=== PATIENT | male | born 1980 | race Two or more races ===

== ENCOUNTER 2024-06-08 08:03 | Emergency (ER) | payer OTHER, SELFPAY ==
--- NOTE | ~2024-06-08 | XR_ITS ---
EXAMINATION: XR HIP, RIGHT CLINICAL INFORMATION: Right hip pain. [place] a crack chiropractor COMPARISON: None available. TECHNIQUE: AP pelvis, and 2 views of the right hip. FINDINGS: No fracture, dislocation, or suspicious bone lesion. Right hip demonstrates preserved joint space, with mild osteoarthrosis present, and associated mild marginal and subcapital osteophytic spurring. There is mild calcification of the superior labrum. Left hip demonstrates similar findings however are slightly less severe. 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 The sacrum and SI joints appear normal. No soft tissue abnormalities. XR/XR hip RT w PEL1V IMPRESSION: 1. No acute findings in the pelvis or hip joints. 2. Mild to moderate right greater than left hip joint osteoarthrosis. 3. 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 Electronically signed by: Farshad Dubose MD 06/08/2024 10:48 AM [facility]
[2024-06-08 08:12] VITALS: BP 114/43; PULSE 57; RESP 20; TEMP 36.4; O2SAT 100; BMI 24.4
--- NOTE | 2024-06-08 10:26 | ED_ITS ---
HPI - General Adult General Chief complaint: Extremity Injury, Lower Stated complaint: R hip pain Time Seen by Provider: 06/08/24 09:48 Source: patient Mode of arrival: ambulatory Limitations: no limitations History of Present Illness ED Provider: Salty MATA HPI narrative: 43-year-old male healthy presents to ED for right hip pain. Patient states on Wednesday he went to see a chiropractor to get some work done on his right hip. Patient states during the chiropractor realignment he heard a crack in his hip ever since he has had pain on ambulation and pain on movement of right hip. Patient denies any abdominal pain, nausea, vomiting, flank pain, fever, chills, testicular pain, testicular swelling, penile discharge, penile lesions, or mass bulging in groin/ testicular area. Patient denies any redness or bluish black discoloration Related Data Previous Rx's ?Medication ?Instructions ?Recorded cyclobenzaprine 10 mg tablet 10 mg PO BEDTIME PRN muscle spasm 06/08/24 #7 tabs ketorolac 10 mg tablet 10 mg PO Q6H PRN pain 5 days #20 06/08/24 tabs Allergies Allergy/AdvReac Type Severity Reaction Status Date / Time No Known Allergies Allergy Verified 06/08/24 08:14 Review of Systems 2 Review of Systems: Right hip pain Yes all other systems are reviewed and are negative Physical Exam ED Vital Signs: Vital Signs - 24 hr 06/08/24 08:12 06/08/24 12:05 Temperature 97.5 F 97.5 F Pulse Rate 57 57 Respiratory Rate 20 20 Blood Pressure 114/43 L 114/43 L Pulse Oximetry 100 100 Oxygen Delivery Method Room Air Room Air BMI result Body Mass Index 24.4 Const General: cooperative, healthy appearing, comfortable, no acute distress, well developed, alert and awake Orientation/consciousness: patient oriented x3 HENMT Head: Yes normal to inspection, Yes No palpable skull fracture present, Yes normocephalic and Yes atraumatic Eyes General: appearance normal, both eyes and all related structures Neck Neck: Yes normal visual inspection, Yes full ROM, Yes no lymphadenopathy, Yes no meningeal signs, Yes trachea midline, Yes supple, No anterior neck swelling and No tender Chest Chest palpation & inspection: normal inspection of the chest and normal palpation of entire chest wall Resp Effort & Inspection: normal respiratory effort and able to speak in complete sentences Auscultation: clear to auscultation bilaterally Cardio Jugular venous distension: no JVD Heart sounds: S1 normal heart sound present and S2 normal heart sound present GI Inspection: Yes normal to inspection Palpation (GI): Soft to palpation, not firm, nontender, no guarding and not rigid General: Yes no CVA tenderness Back/Spine/Pelvis Back: no CVA tenderness and No back tenderness Skin General skin exam: no rashes or lesions noted, elasticity normal and turgor normal Neuro General: patient oriented x3, gait normal, tone normal, moves all extremities, Normal light touch and pain sensation, no meningeal signs, no focal motor deficits, CN's II-XI intact bilaterally and normal sensation to monofilament Extrem General: Yes normal to inspection, Yes full ROM and Yes capillary refill normal Upper/lower leg/hip images: 2 1. Positive for tenderness on palpation. Negative for ecchymosis, crepitus, deformity, swelling, fluctuance, erythema, or rash. Rest of extremity normal. Motor/neuro/vascular exam intact. Negative for calf swelling or pitting edema. Negative for calf tenderness Psych Appearance: grossly normal, well kempt and not disheveled Medications Administered Discontinued Medications Generic Name Dose Route Start Last Admin Trade Name Freq PRN Reason Stop Dose Admin Cyclobenzaprine HCl 5 mg 06/08/24 10:10 06/08/24 10:35 Cyclobenzaprine Hcl 5 Mg Tablet PO 06/08/24 10:11 5 mg ONCE ONE Administration Ketorolac Tromethamine 30 mg 06/08/24 10:10 06/08/24 10:35 Ketorolac Tromethamine 30 Mg/Ml Vial IM 06/08/24 10:11 30 mg ONCE ONE Administration Prednisone 60 mg 06/08/24 10:10 06/08/24 10:35 Prednisone 20 Mg Tablet PO 06/08/24 10:11 60 mg ONCE ONE Administration Medical Decision Making Medical Decision Making MDM Narrative: 42-year-old male with right hip pain has to chiropractor use. Patient has significant pain on range of motion and walking. Abdomen is benign. exam was deferred. X-ray pain meds ordered. 11:18am: X-ray negative for fracture. X-ray shows osteoarthritis. Patient given copy of x-ray for follow-up with primary care provider and also orthopedic may need MRI to ensure there is no muscle tear in the hip. Not suspecting testicular torsion, epididymitis, appendicitis, kidney stones, inguinal or any other type of hernia, incarcerated hernia, DVT, arterial occlusion, fracture, dislocation, compartment syndrome, septic joint, vascular injury, sepsis, or any other life threatening etiology.. Differential Diagnosis Differential Diagnoses: The differential diagnosis associated with the presentation includes (Muscle sprain, fracture) Admission/Observation Consideration of admission/observation: Escalation of care including admission/observation considered Independent Interpretation I performed an independent interpretation of an: Plain X-Ray Radiology Impression Discussion of test interpretation with radiology: I have reviewed the radiologist's reading. Independent Historian Clinical information obtained from an independent historian. History obtained from or confirmed by: Other (patient) External Record Review External record reviewed: Other (prior visits) Prescription Management I considered prescription management with: Pain Medication Discharge Plan Discharge Clinical Impression: Sprain, Hip sprain Patient Disposition: Home, Self-Care Instructions: Osteoarthritis (ED), Hip Sprain (ED), Cold Compress or Soak (ED) Additional Instructions: X-ray showed osteoarthritis by our recommend follow-up with primary care provider and orthopedic surgeon for MRI if no improvement in pain to make sure there is no muscle injury. Return to the ED immediately for any worsening pain, swelling of lower extremity, testicular pain, mass bulge in groin genital area, penile discharge, abdominal pain, nausea, vomiting, flank pain, fever, chills, calf pain, chest pain, shorntess of breath, redness, now homeless/tingling extremities, inability to walk, bluish/black discloration, or any other concerning symptoms. Do not take any other NSAIDs while you are taking ketorolac. XR/XR hip RT w PEL1V IMPRESSION: 1. No acute findings in the pelvis or hip joints. 2. Mild to moderate right greater than left hip joint osteoarthrosis. 3. 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 Electronically signed by: Farshad Dubose MD 06/08/2024 10:48 AM [facility] Prescriptions: New cyclobenzaprine 10 mg tablet 10 mg PO BEDTIME PRN (Reason: muscle spasm) Qty: 7 0RF Rx Instructions: Side effects is drowsiness. Did not take at work or while driving ketorolac 10 mg tablet 10 mg PO Q6H PRN (Reason: pain) 5 Days Qty: 20 0RF Rx Instructions: Patient received 30 mg IM in the ED Stand Alone Forms: Work/School Release Interventions: ED Discharge Assessment Last Done: 06/08/24 12:05 Discharge Date/Time: 06/08/24 12:06 Print Language: [place]
[2024-06-08] MEDS: Ketorolac Tromethamine 30 MG/ML VIAL IM (10:35)
[2024-06-08] MEDS: Cyclobenzaprine HCl 5 MG TABLET PO (10:35)
[2024-06-08] MEDS: predniSONE 20 MG TABLET 60 MG PO (10:35)
[2024-06-08 12:05] VITALS: BP 114/43; PULSE 57; RESP 20; TEMP 36.4; O2SAT 100
== END 2024-06-08 12:06 | disposition home or self-care (01) ==
PROVIDERS: Emergency Provider Student in an Organized Health Care Education/Training Program
DX: S73.101A Unspecified sprain of right hip, initial encounter (principal); M25.551 Pain in right hip; X58.XXXA Exposure to other specified factors, initial encounter; Y93.89 Activity, other specified; Y92.89 Other specified places as the place of occurrence of the external cause; Y99.8 Other external cause status
CPT/HCPCS: 73502; 96372; 99283; 99284; J1885

== ENCOUNTER → 2024-06-08 10:10 | Outpatient (BNV) | payer OTHER, SELFPAY | PROVIDERS: Emergency Provider Student in an Organized Health Care Education/Training Program; Visit Provider Radiology Diagnostic Radiology | DX: M16.0 Bilateral primary osteoarthritis of hip (principal); M24.851 Other specific joint derangements of right hip, not elsewhere classified; M24.852 Other specific joint derangements of left hip, not elsewhere classified | CPT/HCPCS: 73502 ==